=== PATIENT | female | born 2000 | race African-American/Black ===

== ENCOUNTER 2025-09-28 09:03 | Emergency (ER) | payer MEDICAID ==
[~2025-09-28] VITALS: Ht 175.3 cm; Wt 82.0 kg
[2025-09-28 09:09] VITALS: O2SAT 100
[2025-09-28] MEDS ORDERED: CLINDAMYCIN HCL 150MG CAPSULE PO STA ×2 (09:30→09:33)
[2025-09-28] MEDS ORDERED: CLIN-194 MT (09:31)
[2025-09-28 09:38] VITALS: BP 135/82; PULSE 89; RESP 14; TEMP 37.2; O2SAT 100
[2025-09-28] MEDS ORDERED: CLINDAMYCIN HCL 150MG CAPSULE PO NR (09:45)
== END 2025-09-28 09:39 | disposition home or self-care (01) ==
LOC: ER 09:03
DX: K04.7 Periapical abscess without sinus (principal)
CPT/HCPCS: 99283